=== PATIENT | male | born 1935 | race African-American/Black ===

== ENCOUNTER 2022-02-26 10:26 | Emergency (ER) | payer BC, OTHER ==
[~2022-02-26] VITALS: Ht 172.7 cm; Wt 57.0 kg
[2022-02-26 12:28] LABS: BASOPHILS % 0.9 % (0.0-2.0); EOSINOPHILS % 1.7 % (0.0-5.0); HEMATOCRIT. 43.3 % (42.0-52.0); HEMOGLOBIN. 14.6 g/dL (14.0-18.0); MEAN CORPUSCULAR HEMOGLOBIN 30.5 pg (28.0-32.0); MEAN CORPUSCULAR VOLUME 90.1 fL (80.0-94.0); MEAN PLATELET VOLUME 9.3 fl (7.4-10.4); NEUTROPHILS % 66.4 % (40.0-76.0); PLATELET 250 x1000/uL (130-400); RED CELL DISTRIBUTION WIDTH 15.2 % (11.6-14.6)
[2022-02-26 12:37] LABS: CHLORIDE 101 mEq/L (98-107)
[2022-02-26] MEDS ORDERED: HYDRALAZINE 20MG/ML VIAL IV ONE (13:15)
[2022-02-26] MEDS ORDERED: AMLODIPINE 5MG TABLET PO ONE (15:45)
[2022-02-26 16:55] VITALS: BP 179/93
== END 2022-02-26 17:14 | disposition left against medical advice (07) ==
LOC: ER 10:26 → CANBEDREQ 16:48 → ER 17:14
DX: I16.0 Hypertensive urgency (principal); E11.65 Type 2 diabetes mellitus with hyperglycemia; F03.90 Unspecified dementia, unspecified severity, without behavioral disturbance, psychotic disturbance, mood disturbance, and anxiety; Z79.4 Long term (current) use of insulin
CPT/HCPCS: 36415; 71045; 80053; 82010; 83880; 84484; 85025; 93005; 99285